=== PATIENT | female | born 1960 | race Caucasian/White ===

== ENCOUNTER 2020-05-28 09:41 | Emergency (ER) | payer OTHER, SELFPAY ==
--- NOTE | ~2020-05-28 | XR_ITS ---
EXAMINATION: XR shoulder RT min 2V DATE: 05/28/2020 10:31 INDICATION: Right shoulder pain post lifting a baby 2 weeks prior TECHNIQUE: AP internally and externally rotated, AP oblique externally rotated and axillary views of the right shoulder were obtained. COMPARISON: None FINDINGS: Normal alignment. No fracture.Mild glenohumeral osteoarthritis with mild nonuniform joint space duri ng and prominent marginal osteophytes along the inferior glenoid. Mild acromioclavicular osteoarthrit is. Tiny subacromial spur. Mild hypertrophic and cystic change along the superior facet of the greate r tuberosity suggesting chronic rotator cuff disease. Visualized portions of the lungs are clear. Mod erate thoracic and lower cervical spondylosis. Soft tissues are unremarkable. IMPRESSION: 1. Mild right glenohumeral and acromial clavicular osteoarthritis. No acute osseous abnormality. 2. Hypertrophic and cystic change at the superior facet of the greater tuberosity suggestive of chron ic rotator cuff disease. Reviewed, dictated and finalized at location A. [employer] IMPRESSION: 1. Mild right glenohumeral and acromial clavicular osteoarthritis. No acute oss eous abnormality. 2. Hypertrophic and cystic change at the superior facet of the greater tuberosi ty suggestive of chronic rotator cuff disease.
[2020-05-28 10:07] VITALS: BP 138/98; PULSE 71; RESP 16; TEMP 36.5; O2SAT 99
--- NOTE | 2020-05-28 10:07 | ED.UPPEXIN ---
HPI - Extremity Injury (Upper) General Chief Complaint: Extremity Injury, Upper Stated Complaint: pain in right shoulder Source: patient and RN notes reviewed Mode of arrival: ambulatory Limitations: no limitations History of Present Illness HPI narrative: 59-year-old female presents to the emergency room with complaints of right shoulder pain x 1 week. Has decreased range of motion. 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 Denies any trauma to the area. Has a positive radial pulse, capillary refill under 2 seconds. Patient has full range of motion without pain of the elbow and wrist. His cervical spine pain. No midline tenderness. No chest pain or shortness of breath. No abdominal pain. Related Data Home Medications Medication Instructions Recorded Confirmed bupropion HCl mg PO 05/28/20 metoprolol succinate PO 05/28/20 simvastatin mg 05/28/20 Allergies Allergy/AdvReac Type Severity Reaction Status Date / Time No Known Allergies Allergy Mild Verified 05/28/20 09:58 Review of Systems Review of Systems: Narrative: CONSTITUTIONAL: Denies fever, chills, or sweats. EYES: Denies visual changes, redness, or discharge. ENT: Denies rhinorrhea, congestion, sore throat, or otalgia. CARDIOVASCULAR: Denies chest pain, palpitations, or edema. RESPIRATORY: Denies cough or dyspnea. GASTROINTESTINAL: Denies abdominal pain, nausea, vomiting, or diarrhea. GENITOURINARY: Denies dysuria or hematuria. SKIN: Denies rash or itching. MUSCULOSKELETAL: Denies back pain or myalgia. Right shoulder pain, posterior, decreased range of motion NEUROLOGIC: Denies headache, numbness, or weakness. PSYCHIATRIC: Denies anxiety or depression. All other systems reviewed are negative, except as documented in HPI. [facility] Social History Social History Gender identity (if verbalized by the patient): Female Comments At the time of my signature, I reviewed and agree with the nursing past medical, surgical, social, and family history. There is no relevant family history pertinent to the patient complaint. Exam Narrative: Exam Narrative: GENERAL: This is a well-nourished, well-developed patient, in no apparent distress. HEAD: normocephalic, atraumatic. EYES: PERRL. Sclera clear/white. Vision is grossly intact. EARS: External ears normal without drainage. Hearing grossly intact. NECK: Neck supple, non-tender without lymphadenopathy, masses or thyromegaly. CARDIOVASCULAR: Regular rate and rhythm without murmurs, gallops, or rubs. RESPIRATORY: Clear to auscultation. Breath sounds equal bilaterally. No wheezes, rales, or rhonchi. GASTROINTESTINAL: Abdomen soft, non-tender, nondistended. SKIN: warm, intact with no suspicious lesions or rash, good texture and turgor. NEURO: awake, alert, and oriented to person, place and time. There were no obvious focal neurologic abnormalities. EXTREMITIES: No clubbing, cyanosis, or edema. No joint effusion, or edema noted. Tenderness posterior right shoulder. Able to raise 90 degrees both anterior and laterally. Pain starts just above 90 degrees. No bruising or swelling noted. BACK: Nontender without deformity or crepitance. No flank tenderness. Course Vital Signs Vital signs: Vital Signs Temperature 97.7 F 05/28/20 10:07 Pulse Rate 71 05/28/20 10:07 Respiratory Rate 16 05/28/20 10:07 Blood Pressure 138/98 H 05/28/20 10:07 Pulse Oximetry 99 05/28/20 10:07 Temperature 97.7 F 05/28/20 10:07 Pulse Rate 71 05/28/20 10:07 Respiratory Rate 16 05/28/20 10:07 Blood Pressure 138/98 H 05/28/20 10:07 Pulse Oximetry 99 05/28/20 10:07 Reviewed. Discussed the importance of establishing a primary care provider for evaluation of blood pressure MDM - Extremity Injury (Upper) Differential Diagnosis Differential diagnosis: Likely dislocation of shoulder and other (Osteoarthritis, shoulder strain, trapezius strain, rotator cuff injury) Imaging Data
== END 2020-05-28 11:00 | disposition home or self-care (01) ==
PROVIDERS: Emergency Provider Nurse Practitioner
DX: M19.011 Primary osteoarthritis, right shoulder (principal); S46.001A Unspecified injury of muscle(s) and tendon(s) of the rotator cuff of right shoulder, initial encounter; X50.3XXA Overexertion from repetitive movements, initial encounter
CPT/HCPCS: 73030; 99213; G0463